=== PATIENT | female | born 1970 | race Caucasian/White ===

== ENCOUNTER 2025-09-17 19:49 | Inpatient (IN) ==
[2025-09-17] MEDS ORDERED: IOPAMIDOL 100 ML BOTTLE IV ONE (19:50)
[2025-09-17] MEDS: IPRATROPIUM/ALBUTEROL 3 ML AMPUL.NEB NEB ONE (20:07)
[2025-09-17] MEDS: ALBUTEROL SULFATE 2.5 MG/3 ML NEBULIZER NEB ONE (20:37)
[2025-09-17 21:29] LABS: Basophils # (Auto) 0.02 K/mcL (0.00-0.30); Basophils % (Auto) 0.2 % (0.0-2.0); Eosinophils # (Auto) 0.34 K/mcL (0.00-0.70); Eosinophils % (Auto) 3.0 % (0.0-7.0); Hematocrit 32.1 % (34.1-44.9); Hemoglobin 9.9 g/dL (11.2-15.7); Lymphocytes # (Auto) 1.64 K/mcL (1.50-4.80); Lymphocytes % (Auto) 14.6 % (15.5-49.0); Mean Corpuscular HGB Conc 30.8 g/dL (31.0-36.0); Monocytes # (Auto) 2.07 K/mcL (0.10-0.90); Monocytes % (Auto) 18.5 % (1.0-12.0); Neutrophils % (Auto) 63.1 % (38.0-78.0); Platelet Count 270 K/mcL (140-440); RBC 3.70 M/mcL (3.59-5.38); WBC 11.2 K/mcL (4.5-11.0)
[2025-09-17 21:31] LABS: ALT/SGPT 16 U/L (<40); AST/SGOT 19 U/L (<32); Albumin 3.2 gm/dL (3.2-5.2); Albumin/Globulin Ratio 1.1 (1.0-2.3); Alkaline Phosphatase 126 U/L (39-117); Anion Gap 13.0 (8.0-16.0); Bilirubin,Total 0.3 mg/dL (0.1-1.0); Blood Urea Nitrogen 36 mg/dL (6-20); Calcium 8.1 mg/dL (8.6-10.4); Carbon Dioxide 22 mmol/L (22-30); Chloride 103 mmol/L (96-108); Globulin 2.9 gm/dL (2.2-3.7); Glucose 99 mg/dL (70-105); Potassium 4.4 mmol/L (3.3-5.1); Sodium 138 mmol/L (133-145)
[2025-09-17] MEDS: 0.9 % SODIUM CHLORIDE 1,000 ML IV ONE (21:59)
[2025-09-18 02:06] LABS: ALT/SGPT 15 U/L (<40); AST/SGOT 18 U/L (<32); Albumin 3.1 gm/dL (3.2-5.2); Albumin/Globulin Ratio 1.1 (1.0-2.3); Alkaline Phosphatase 119 U/L (39-117); Anion Gap 12.0 (8.0-16.0); Bilirubin,Total < 0.2 mg/dL (0.1-1.0); Blood Urea Nitrogen 34 mg/dL (6-20); Calcium 7.8 mg/dL (8.6-10.4); Carbon Dioxide 21 mmol/L (22-30); Chloride 101 mmol/L (96-108); Globulin 2.7 gm/dL (2.2-3.7); Glucose 196 mg/dL (70-105); Potassium 4.5 mmol/L (3.3-5.1); Sodium 134 mmol/L (133-145)
[2025-09-18] MEDS: cefTRIAXone 1 GM VIAL IV ONE (02:55)
[2025-09-18] MEDS: HYDROmorphone 0.5 MG/0.5 ML SYRINGE IV ONE (02:55)
[2025-09-18] MEDS: ONDANSETRON 4 MG/2 ML VIAL IV ONE (02:56)
[2025-09-18 03:36] LABS: Bacteria,Urine Mod /hpf (0); Bilirubin,Urine NEGATIVE (Negative); Color,Urine Yellow; Glucose,Urine (UA) NEGATIVE (Negative); Ketones,Urine NEGATIVE (Negative); Leukocyte Esterase,Urine LARGE /uL (Negative); PH,Urine 6.0 (5.0-9.0); Protein,Urine TRACE mg/dL (Negative); Specific Gravity,Urine 1.010 (1.000-1.035); Urine Budding Yeast Few /hpf; Urobilinogen,Urine 0.2 mg/dL
[2025-09-18] MEDS: ACETAMINOPHEN 650 MG/65 ML BAG IV PRN (04:29)
[2025-09-18] MEDS: 0.9 % SODIUM CHLORIDE 1,000 ML IV SCH (05:32)
[2025-09-18] MEDS: AZITHROMYCIN 500 MG in DEXTROSE 5% IN WATER 250 ML IV ONE (05:35)
[2025-09-18 06:00] LABS: Anion Gap 11.0 (8.0-16.0); Blood Urea Nitrogen 33 mg/dL (6-20); Calcium 8.0 mg/dL (8.6-10.4); Carbon Dioxide 23 mmol/L (22-30); Chloride 101 mmol/L (96-108); Glucose 166 mg/dL (70-105); Potassium 4.2 mmol/L (3.3-5.1); Sodium 135 mmol/L (133-145)
[2025-09-18] MEDS: HYDROmorphone 0.5 MG/0.5 ML SYRINGE IV PRN ×2 (06:14→09:18)
[2025-09-18] MEDS: ONDANSETRON 4 MG/2 ML VIAL IV PRN ×2 (07:18→12:02)
[2025-09-18] MEDS ORDERED: hydrALAZINE 20 MG/ML VIAL IV PRN (09:13)
[2025-09-18] MEDS ORDERED: PHENYLephrine 1 MG/10 ML SYRINGE (ANEST) ONE (12:57)
[2025-09-18] MEDS ORDERED: ONDANSETRON 4 MG/2 ML VIAL ONE (12:57)
[2025-09-18] MEDS ORDERED: DEXAMETHASONE 10 MG/ML VIAL ONE (12:57)
[2025-09-18] MEDS ORDERED: ePHEDrine 50 MG/5 ML SYRINGE (ANEST) IV ONE (12:58)
[2025-09-18] MEDS ORDERED: MIDAZOLAM 2 MG/2 ML VIAL ONE (12:58)
[2025-09-18] MEDS ORDERED: fentaNYL 100 MCG/2 ML VIAL ONE (12:59)
[2025-09-18] MEDS ORDERED: PROPOFOL 200 MG/20 ML VIAL IV ONE (12:59)
[2025-09-18] MEDS: IOVERSOL 50 ML VIAL IJ ONE (13:42)
[2025-09-18] MEDS: LIDOCAINE 2% URO-JET 10 ML JEL.PF.APP UR ONE (13:42)
[2025-09-18] MEDS: 0.9 % SODIUM CHLORIDE 10 ML SYRINGE IV SCH (15:04)
[2025-09-18] MEDS ORDERED: cefTRIAXone 1 GM VIAL IV SCH (18:00)
[2025-09-18] MEDS: cefTRIAXone 2 GM in DEXTROSE 5% IN WATER 50 ML IV SCH (18:16)
[2025-09-18] MEDS: IPRATROPIUM/ALBUTEROL 3 ML AMPUL.NEB NEB PRN (19:07)
[2025-09-18] MEDS: DROPERIDOL 5 MG/2 ML VIAL IV ONE (20:09)
[2025-09-18] MEDS: SENNOSIDES 1 TABLET PO SCH (21:49)
[2025-09-18] MEDS: DOCUSATE SODIUM 100 MG CAPSULE PO SCH (21:50)
[2025-09-19] MEDS ORDERED: cefTRIAXone 1 GM VIAL IV SCH (03:00)
[2025-09-19] MEDS ORDERED: AZITHROMYCIN 500 MG in DEXTROSE 5% IN WATER 250 ML IV SCH ×2 (04:00→10:00)
[2025-09-19 06:58] LABS: Anion Gap 6.0 (8.0-16.0); Blood Urea Nitrogen 27 mg/dL (6-20); Calcium 7.9 mg/dL (8.6-10.4); Carbon Dioxide 25 mmol/L (22-30); Chloride 108 mmol/L (96-108); Glucose 141 mg/dL (70-105); Potassium 5.1 mmol/L (3.3-5.1); Sodium 139 mmol/L (133-145)
[2025-09-19 06:58] LABS: Basophils # (Auto) 0.01 K/mcL (0.00-0.30); Basophils % (Auto) 0.1 % (0.0-2.0); Eosinophils # (Auto) 0 K/mcL (0.00-0.70); Eosinophils % (Auto) 0 % (0.0-7.0); Hematocrit 30.0 % (34.1-44.9); Hemoglobin 9.1 g/dL (11.2-15.7); Lymphocytes # (Auto) 0.89 K/mcL (1.50-4.80); Lymphocytes % (Auto) 4.6 % (15.5-49.0); Mean Corpuscular HGB Conc 30.3 g/dL (31.0-36.0); Monocytes # (Auto) 1.61 K/mcL (0.10-0.90); Monocytes % (Auto) 8.3 % (1.0-12.0); Neutrophils % (Auto) 84.2 % (38.0-78.0); Platelet Count 352 K/mcL (140-440); RBC 3.39 M/mcL (3.59-5.38); WBC 19.3 K/mcL (4.5-11.0)
[2025-09-19] MEDS: ACETAMINOPHEN 325 MG TABLET PO PRN (09:22)
[2025-09-19] MEDS ORDERED: ALBUTEROL SULFATE 60 PUFF INHALER INH PRN (12:48)
[2025-09-19] MEDS: LIDOCAINE 4% TOP PATCH TOPICAL SCH (13:07)
[2025-09-19] MEDS: CYCLOBENZAPRINE 10 MG TABLET PO SCH (16:19)
[2025-09-19] MEDS: Diclofenac Sodium 75 mg tablet,delayed release PO SCH (21:21)
[2025-09-20 06:19] LABS: Basophils # (Auto) 0.02 K/mcL (0.00-0.30); Basophils % (Auto) 0.1 % (0.0-2.0); Eosinophils # (Auto) 0.22 K/mcL (0.00-0.70); Eosinophils % (Auto) 1.2 % (0.0-7.0); Hematocrit 32.8 % (34.1-44.9); Hemoglobin 9.8 g/dL (11.2-15.7); Lymphocytes # (Auto) 2.78 K/mcL (1.50-4.80); Lymphocytes % (Auto) 15.5 % (15.5-49.0); Mean Corpuscular HGB Conc 29.9 g/dL (31.0-36.0); Monocytes # (Auto) 1.68 K/mcL (0.10-0.90); Monocytes % (Auto) 9.4 % (1.0-12.0); Neutrophils % (Auto) 63.5 % (38.0-78.0); Platelet Count 338 K/mcL (140-440); RBC 3.74 M/mcL (3.59-5.38); WBC 17.9 K/mcL (4.5-11.0)
[2025-09-20 06:45] LABS: Anion Gap 6.0 (8.0-16.0); Blood Urea Nitrogen 20 mg/dL (6-20); Calcium 9.0 mg/dL (8.6-10.4); Carbon Dioxide 27 mmol/L (22-30); Chloride 107 mmol/L (96-108); Glucose 89 mg/dL (70-105); Potassium 4.2 mmol/L (3.3-5.1); Sodium 140 mmol/L (133-145)
[2025-09-20 08:11] VITALS: O2SAT 96
[2025-09-20] MEDS: PANTOPRAZOLE 40 MG TABLET PO SCH (08:12)
[2025-09-20] MEDS: POLYETHYLENE GLYCOL 3350 17 GM PACKET PO SCH (08:12)
[2025-09-20 12:00] VITALS: TEMP 96.7
== END 2025-09-20 13:02 | disposition home or self-care (01) | DRG 660 ==
LOC: ED 19:49 → MEDSUR 09-18 04:09
PROVIDERS: ADMIT Internal Medicine; ATTEND Internal Medicine